=== PATIENT | male | born 1995 | race Caucasian/White ===

== ENCOUNTER → 2017-10-29 | Outpatient (CLI) | payer OTHER | LOC: COL.RAD 07:48 | DX: M25.811 Other specified joint disorders, right shoulder (principal); M25.511 Pain in right shoulder | CPT/HCPCS: A9585; Q9967 ==

== ENCOUNTER 2017-11-29 19:42 | Emergency (ER) | payer OTHER ==
[~2017-11-29] VITALS: Ht 182.9 cm; Wt 86.4 kg
[2017-11-29 19:47] VITALS: TEMP 98.2
[2017-11-29 21:11] LABS: BASO % 0.4 % (0.0-2.0); EOS # 0.1 (0.0-0.7); EOS % 1.4 % (0-4.0); GRAN # 6.9 (1.4-6.5); GRAN % 68.9 % (42.2-75.2); HEMATOCRIT 40.7 % (42.0-52.0); HEMOGLOBIN 14.2 g/dl (13.5-18.0); LYMPH # 2.2 (1.2-3.4); LYMPH % 22.1 % (20.0-51.0); MEAN CELL VOLUME 86 fl (80.0-100.0); MEAN CORPUSCULAR HEMOGLOBIN 30 pg (27.0-31.0); MEAN CORPUSCULAR HGB CONC 35 g/dl (33.0-37.0); MONO # 0.7 (0.1-0.6); MONO % 6.9 % (1.7-9.3); PLATELET COUNT 173 K/mm3 (130-400); RED BLOOD COUNT 4.73 M/mm3 (4.20-5.60); REDCELL DISTRIBUTION WIDTH-CV 11.9 % (11.5-14.5)
[2017-11-29 21:15] LABS: ALANINE AMINOTRANSFERASE 31 U/L (21-72); ALBUMIN 4.7 gm/dL (3.5-5.0); ALKALINE PHOSPHATASE 74 U/L (50-136); ANION GAP 8 mmol/L (7-16); AST,SGOT 29 U/L (15-37); BILIRUBIN,TOTAL 0.8 mg/dL (0.0-1.0); BLOOD UREA NITROGEN 12 mg/dL (9-20); CARBON DIOXIDE 28 mmol/L (22-30); CHLORIDE 103 mmol/L (98-107); CREATINE KINASE 331 U/L (55-170); CREATININE, serum 0.95 mg/dL (0.66-1.25); GLUCOSE 90 mg/dL (74-106); POTASSIUM 3.7 mmol/L (3.4-5.0); SODIUM 139 mmol/L (137-145); TOTAL PROTEIN 7.7 gm/dL (6.4-8.2)
[2017-11-29 21:17] LABS: MAGNESIUM 1.8 mg/dL (1.6-2.3)
[2017-11-29 21:27] LABS: TROPONIN-I < 0.012 ng/mL (0.000-0.034)
[2017-11-29 22:15] VITALS: BP 134/83; PULSE 63
== END 2017-11-29 22:17 | disposition home or self-care (01) ==
LOC: COL.ER 19:42
PROVIDERS: Nurse Practitioner
DX: R07.89 Other chest pain (principal); F41.9 Anxiety disorder, unspecified; Z88.1 Allergy status to other antibiotic agents
CPT/HCPCS: J7030

== ENCOUNTER 2018-01-09 01:48 | Emergency (ER) | payer OTHER ==
[~2018-01-09] VITALS: Ht 182.9 cm; Wt 86.4 kg
[2018-01-09 01:54] VITALS: TEMP 99.9
[2018-01-09] MEDS ORDERED: PERCOCET 325 MG1 TA2 PO (02:50)
[2018-01-09] MEDS ORDERED: LEXAPRO 10MG10 MG PO (02:53)
[2018-01-09] MEDS ORDERED: MOBIC15 MG PO (04:53)
[2018-01-09] MEDS ORDERED: PHENERGAN 25 TA25 MG PO (04:53)
[2018-01-09 05:07] VITALS: BP 159/95; PULSE 84
[2018-01-09] MEDS ORDERED: CLEOCIN HCL300 MG PO (05:12)
== END 2018-01-09 05:28 | disposition home or self-care (01) ==
LOC: COL.ER 01:48
DX: S02.5XXA Fracture of tooth (traumatic), initial encounter for closed fracture (principal); S01.511A Laceration without foreign body of lip, initial encounter; Z98.890 Other specified postprocedural states; Y04.8XXA Assault by other bodily force, initial encounter; Y92.410 Unspecified street and highway as the place of occurrence of the external cause

== ENCOUNTER 2018-01-14 15:47 | Emergency (ER) | payer OTHER ==
[~2018-01-14 15:47] MED LIST: CLEOCIN HCL300 MG PO; LEXAPRO 10MG10 MG PO; MOBIC15 MG PO; PERCOCET 325 MG1 TA2 PO; PHENERGAN 25 TA25 MG PO
[2018-01-14 15:50] VITALS: BP 141/78; PULSE 74; TEMP 97.7
== END 2018-01-14 15:57 | disposition home or self-care (01) ==
LOC: COL.ER 15:47
DX: S01.511D Laceration without foreign body of lip, subsequent encounter (principal); X58.XXXD Exposure to other specified factors, subsequent encounter